=== PATIENT | female | born 1945 | race Caucasian/White ===

== ENCOUNTER 2021-08-20 10:58 | Emergency (ER) | payer MEDICARE, BC ==
[2021-08-20 11:58] LABS: #Eosinphils 0.1 10x3/uL (0.0-0.5); #Monocytes 0.6 10x3/uL (0.0-1.1); %Basophils 0.3 % (0.0-2.0); %Eosinophils 1.5 % (0.0-6.0); %Lymphocytes 15.8 % (18.0-47.0); %Monocytes 6.7 % (0.0-10.0); %Neutrophils 75.5 % (40.0-75.0); Hemoglobin 13.3 g/dL (12.0-15.5); Mean Corpuscular HGB CONC 32.5 g/dL (32.0-36.0); Mean Corpuscular Hemoglobin 28.8 pg (27.0-33.0); Mean Corpuscular Volume 88.5 fl (81.6-98.3); Mean Platelet Volume 8.8 fl (7.4-10.4); Platelet Count 419 10x3/uL (150-450); RBC Distribution Width 13.7 % (11.5-14.5); Red Blood Cell (RBC) Count 4.62 10x6/uL (3.90-5.03); White Blood Cell (WBC) Count 9.3 10x3/uL (3.5-10.5)
[2021-08-20 12:13] LABS: ALT (SGPT) 6 U/L (8-55); AST (SGOT) 11 U/L (5-34); Albumin 3.5 g/dL (3.4-4.8); Alkaline Phosphatase 73 U/L (40-110); Anion Gap 14 mmol/L (10-20); BUN (Urea Nitrogen) 12 mg/dL (9.8-20.1); Bilirubin, Total 0.5 mg/dL (0.2-1.2); Calc. Creatinine Clearance 0 mL/min (70-130); Calcium 9.1 mg/dL (7.8-10.44); Carbon Dioxide 29 mmol/L (23-31); Chloride 104 mmol/L (98-107); Globulin 3.1 g/dL (2.4-3.5); Glucose 95 mg/dL (83-110); Lipase 14 U/L (8-78); Potassium 3.5 mmol/L (3.5-5.1); Protein, Total 6.6 g/dL (5.8-8.1); Sodium 143 mmol/L (136-145)
[2021-08-20] MEDS ORDERED: Iopamidol 300 61% 100 ML VIAL FS ONE (15:05)
[2021-08-20] MEDS ORDERED: Morphine 4 MG/ML VIAL ONE ×2 (15:59→18:13)
== END 2021-08-20 20:17 ==
LOC: CSHERS 10:58
DX: K56.600 Partial intestinal obstruction, unspecified as to cause (principal); K22.89 Other specified disease of esophagus
CPT/HCPCS: 74177; 80053; 83690; 85025; 96374; 96376; J2270; Q9967

== ENCOUNTER 2021-10-26 10:40 | Outpatient (CLI) | payer MEDICARE, BC | END 2021-10-26 10:41 | disposition home or self-care (01) | LOC: CSHWCC 10:40 | PROVIDERS: ATTEND Nurse Practitioner Family | DX: T81.89XD Other complications of procedures, not elsewhere classified, subsequent encounter (principal); S31.829D Unspecified open wound of left buttock, subsequent encounter | CPT/HCPCS: 11042; 97139; 97607; G0463; 99203 ==

== ENCOUNTER 2021-11-02 09:41 | Outpatient (CLI) | payer MEDICARE, BC | END 2021-11-02 09:42 | disposition home or self-care (01) | LOC: CSHWCC 09:41 | PROVIDERS: ATTEND Nurse Practitioner Family | DX: S31.829D Unspecified open wound of left buttock, subsequent encounter (principal) | CPT/HCPCS: 97607 ==

== ENCOUNTER 2021-11-09 09:11 | Outpatient (CLI) | payer MEDICARE, BC | END 2021-11-09 09:12 | disposition home or self-care (01) | LOC: CSHWCC 09:11 | PROVIDERS: ATTEND Nurse Practitioner Family | DX: S31.829D Unspecified open wound of left buttock, subsequent encounter (principal) | CPT/HCPCS: 99213; G0463 ==

== ENCOUNTER 2021-11-17 13:24 | Outpatient (CLI) | payer MEDICARE, BC | END 2021-11-17 13:25 | disposition home or self-care (01) | LOC: CSHWCC 13:24 | PROVIDERS: ATTEND Nurse Practitioner Family | DX: S31.829D Unspecified open wound of left buttock, subsequent encounter (principal) ==

== ENCOUNTER 2021-11-24 09:53 | Outpatient (CLI) | payer MEDICARE, BC | END 2021-11-24 09:54 | disposition home or self-care (01) | LOC: CSHWCC 09:53 | PROVIDERS: ATTEND Nurse Practitioner Family | DX: S31.829D Unspecified open wound of left buttock, subsequent encounter (principal) ==

== ENCOUNTER 2021-12-01 09:36 | Outpatient (CLI) | payer MEDICARE, BC | END 2021-12-01 09:37 | disposition home or self-care (01) | LOC: CSHWCC 09:36 | PROVIDERS: ATTEND Nurse Practitioner Family | DX: S31.829D Unspecified open wound of left buttock, subsequent encounter (principal) | CPT/HCPCS: 11042; 97607 ==

== ENCOUNTER 2021-12-04 09:47 | Outpatient (CLI) | payer MEDICARE, BC | END 2021-12-04 09:48 | disposition home or self-care (01) | LOC: CSHWCC 09:47 | PROVIDERS: ATTEND Nurse Practitioner Family | DX: S31.829D Unspecified open wound of left buttock, subsequent encounter (principal) | CPT/HCPCS: 97607 ==

== ENCOUNTER 2021-12-07 08:06 | Outpatient (CLI) | payer MEDICARE, BC | END 2021-12-07 08:07 | disposition home or self-care (01) | LOC: CSHWCC 08:06 | PROVIDERS: ATTEND Nurse Practitioner Family | DX: S31.829D Unspecified open wound of left buttock, subsequent encounter (principal) ==

== ENCOUNTER 2021-12-15 08:27 | Outpatient (CLI) | payer MEDICARE, BC | END 2021-12-15 08:28 | disposition home or self-care (01) | LOC: CSHWCC 08:27 | PROVIDERS: ATTEND Nurse Practitioner Family | DX: S31.829D Unspecified open wound of left buttock, subsequent encounter (principal) | CPT/HCPCS: 99212; G0463 ==

== ENCOUNTER 2021-12-17 08:36 | Outpatient (CLI) | payer MEDICARE, BC | END 2021-12-17 08:37 | disposition home or self-care (01) | LOC: CSHWCC 08:36 | PROVIDERS: ATTEND Nurse Practitioner Family | DX: S31.829D Unspecified open wound of left buttock, subsequent encounter (principal) | CPT/HCPCS: 99212; G0463 ==

== ENCOUNTER 2021-12-22 08:58 | Outpatient (CLI) | payer MEDICARE, BC | END 2021-12-22 08:59 | disposition home or self-care (01) | LOC: CSHWCC 08:58 | PROVIDERS: ATTEND Nurse Practitioner Family | DX: S31.829D Unspecified open wound of left buttock, subsequent encounter (principal) | CPT/HCPCS: 99212; G0463 ==

== ENCOUNTER 2021-12-28 10:26 | Outpatient (CLI) | payer MEDICARE, BC | END 2021-12-28 10:27 | disposition home or self-care (01) | LOC: CSHWCC 10:26 | PROVIDERS: ATTEND Nurse Practitioner Family | DX: S31.829D Unspecified open wound of left buttock, subsequent encounter (principal) ==

== ENCOUNTER 2021-12-31 08:47 | Outpatient (CLI) | payer MEDICARE, BC | END 2021-12-31 08:48 | disposition home or self-care (01) | LOC: CSHWCC 08:47 | PROVIDERS: ATTEND Nurse Practitioner Family | DX: S31.829D Unspecified open wound of left buttock, subsequent encounter (principal) ==

== ENCOUNTER 2022-01-14 09:02 | Outpatient (CLI) | payer MEDICARE, BC | END 2022-01-14 09:03 | disposition home or self-care (01) | LOC: CSHWCC 09:02 | PROVIDERS: ATTEND Preventive Medicine Undersea and Hyperbaric Medicine | DX: S31.829D Unspecified open wound of left buttock, subsequent encounter (principal) | CPT/HCPCS: 97139; G0463; 99212 ==

== ENCOUNTER 2022-01-21 09:37 | Outpatient (CLI) | payer MEDICARE, BC | END 2022-01-21 09:38 | disposition home or self-care (01) | LOC: CSHWCC 09:37 | PROVIDERS: ATTEND Preventive Medicine Undersea and Hyperbaric Medicine | DX: S31.829D Unspecified open wound of left buttock, subsequent encounter (principal) ==

== ENCOUNTER 2022-02-04 14:25 | Outpatient (CLI) | payer MEDICARE, BC | END 2022-02-04 14:26 | disposition home or self-care (01) | LOC: CSHWCC 14:25 | PROVIDERS: ATTEND Preventive Medicine Undersea and Hyperbaric Medicine | DX: S31.829D Unspecified open wound of left buttock, subsequent encounter (principal); S41.001D Unspecified open wound of right shoulder, subsequent encounter ==

== ENCOUNTER 2022-02-18 09:06 | Outpatient (CLI) | payer MEDICARE, BC | END 2022-02-18 09:07 | disposition home or self-care (01) | LOC: CSHWCC 09:06 | PROVIDERS: ATTEND Preventive Medicine Undersea and Hyperbaric Medicine | DX: S31.829D Unspecified open wound of left buttock, subsequent encounter (principal) | CPT/HCPCS: 97139; G0463; 99212 ==

== ENCOUNTER 2022-03-04 09:16 | Outpatient (CLI) | payer MEDICARE, BC | END 2022-03-04 09:17 | disposition home or self-care (01) | LOC: CSHWCC 09:16 | PROVIDERS: ATTEND Preventive Medicine Undersea and Hyperbaric Medicine | DX: S31.829D Unspecified open wound of left buttock, subsequent encounter (principal) ==

== ENCOUNTER 2022-03-18 09:22 | Outpatient (CLI) | payer MEDICARE, BC | END 2022-03-18 09:23 | disposition home or self-care (01) | LOC: CSHWCC 09:22 | PROVIDERS: ATTEND Nurse Practitioner Family | DX: S31.829D Unspecified open wound of left buttock, subsequent encounter (principal) | CPT/HCPCS: 87070; 87205; 97139; G0463; 99213 ==

== ENCOUNTER 2022-04-01 08:45 | Outpatient (CLI) | payer MEDICARE, BC | END 2022-04-01 08:46 | disposition home or self-care (01) | LOC: CSHWCC 08:45 | PROVIDERS: ATTEND Nurse Practitioner Family | DX: S31.829D Unspecified open wound of left buttock, subsequent encounter (principal) ==

== ENCOUNTER 2022-04-15 12:52 | Outpatient (CLI) | payer MEDICARE, BC | END 2022-04-15 12:53 | disposition home or self-care (01) | LOC: CSHWCC 12:52 | PROVIDERS: ATTEND Nurse Practitioner Family | DX: S31.829D Unspecified open wound of left buttock, subsequent encounter (principal) ==

== ENCOUNTER 2022-04-29 12:50 | Outpatient (CLI) | payer MEDICARE, BC | END 2022-04-29 12:51 | disposition home or self-care (01) | LOC: CSHWCC 12:50 | PROVIDERS: ATTEND Nurse Practitioner Family | DX: S31.829D Unspecified open wound of left buttock, subsequent encounter (principal) | CPT/HCPCS: 97139; G0463; 99213 ==

== ENCOUNTER 2022-05-13 10:43 | Outpatient (CLI) | payer MEDICARE, BC | END 2022-05-13 10:44 | disposition home or self-care (01) | LOC: CSHWCC 10:43 | PROVIDERS: ATTEND Nurse Practitioner Family | DX: S31.829D Unspecified open wound of left buttock, subsequent encounter (principal) ==

== ENCOUNTER 2022-06-02 09:58 | Outpatient (CLI) | payer MEDICARE, BC | END 2022-06-02 09:59 | disposition home or self-care (01) | LOC: CSHWCC 09:58 | PROVIDERS: ATTEND Nurse Practitioner Family | DX: S31.829S Unspecified open wound of left buttock, sequela (principal) | CPT/HCPCS: 99212; G0463 ==

== ENCOUNTER 2022-08-25 11:08 | Outpatient (CLI) | payer MEDICARE, BC | END 2022-08-25 11:09 | disposition home or self-care (01) | LOC: CSHWCC 11:08 | PROVIDERS: ATTEND Nurse Practitioner Family | DX: S31.829S Unspecified open wound of left buttock, sequela (principal) ==

== ENCOUNTER 2024-07-04 11:23 | Outpatient (CLI) | payer MEDICARE, BC | END 2024-07-04 11:24 | disposition home or self-care (01) | LOC: CSHWCC 11:23 | PROVIDERS: ATTEND Nurse Practitioner Family | DX: L73.2 Hidradenitis suppurativa (principal) | CPT/HCPCS: 99212; G0463 ==